=== PATIENT | female | born 1990 | race Caucasian/White ===

== ENCOUNTER 2016-10-24 22:30 | Emergency (ER) | payer BC, OTHER, SELFPAY ==
[2016-10-24] MEDS ORDERED: Sodium Chloride 0.9% 10 ML Syringe FLUSH PRN (22:41)
[2016-10-24] MEDS ORDERED: Ondansetron 4 MG/2 ML SDV IVPUSH ONE (22:41)
[2016-10-24] MEDS ORDERED: HYDROmorphone 1 MG/ML Syringe IVPUSH ONE (22:41)
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
[2016-10-24] MEDS ORDERED: Lidocaine 1% 50 ML MDV SUBCUT STA (22:51)
[2016-10-24] MEDS ORDERED: Diphtheria,Pertussis(Acell),Tetanus Vaccine 0.5 ML SDV IM ONE (22:56)
[2016-10-25 01:19] VITALS: BP 112/60
[2016-10-25] MEDS ORDERED: Ketorolac 60 MG/2 ML SDV IM ONE (01:31)
--- NOTE | 2016-10-27 18:00 | CT ---
Head CT Technique: Multiple axial sections through the brain were obtained. Intravenous contrast was not utilized. Comparison: No previous intracranial imaging. Findings: Ventricles along with basal cisterns and sulci over the convexities appear within normal limits for the patient's age. No abnormal parenchymal densities are seen. No evidence of intracranial hemorrhage. No midline shift or mass effect is seen. Mild soft tissue swelling is seen within the frontal scalp. No acute calvarial abnormality is seen. Impression: 1. Soft tissue swelling within the frontal scalp on the right side. 2. No acute intracranial abnormality is seen. Diagnostic code #2 I agree with preliminary report issued by [employer] ([facility] preliminary report dictated on 10/25/16, 12:59 AM Central Time)
--- NOTE | 2016-10-27 18:00 | CR ---
Right wrist: Four views of the right wrist were obtained. Comparison: No previous study. Slightly comminuted distal radial fracture is seen. Transverse fracture line is identified through the metaphysis as well as a vertical fracture line extending into the epiphysis with articular extension. Minimal avulsion fracture is noted off the ulnar styloid process. Very slight posterior impaction is seen of the distal radial fracture. No additional fracture or other bony abnormality is seen. Soft tissue swelling is noted. Impression: 1. Distal radial fracture as described above. Minimal fracture within the ulnar styloid process. 2. Soft tissue swelling. Diagnostic code #3
--- NOTE | 2016-10-27 18:00 | CT ---
CT cervical spine Technique: Multiple axial sections were obtained from above C1 inferiorly to the bottom of T2. Reconstructed sagittal and coronal images were reviewed. Comparison: No previous cervical spine imaging. Findings: Mastoid sinuses and middle ear cavities are clear. Posterior skull base is intact. Vertebral body heights and disc spaces are maintained. No central canal stenosis or neural foraminal stenosis is seen. No abnormal subluxation is seen on the reconstructed sagittal images. Impression: 1. No acute abnormality is identified on CT study of the cervical spine. Diagnostic code #1 Agree with preliminary report issued by [employer] ([facility] preliminary report dictated on 10/25/16, 12:55 AM Central Time)
== END 2016-10-25 02:00 | disposition home or self-care (01) ==
LOC: JD.ED 22:30
DX: S06.9X9A Unspecified intracranial injury with loss of consciousness of unspecified duration, initial encounter (principal); S52.571A Other intraarticular fracture of lower end of right radius, initial encounter for closed fracture; S01.81XA Laceration without foreign body of other part of head, initial encounter; F17.210 Nicotine dependence, cigarettes, uncomplicated; Z23 Encounter for immunization; V86.99XA Unspecified occupant of other special all-terrain or other off-road motor vehicle injured in nontraffic accident, initial encounter
CPT/HCPCS: 12013; 29105; 70450; 72125; 73110; 81025; 90471; 90715; 96372; 96374; 96375; 99285; J1170; J1885; J2405; J7050; 99284-25

== ENCOUNTER 2019-08-02 00:52 | Emergency (ER) | payer BC ==
[2019-08-02 01:10] VITALS: BP 130/85; PULSE 108
[2019-08-02] MEDS ORDERED: Lidocaine 1% 10 ML MDV INJECT ONE (03:36)
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
== END 2019-08-02 05:03 | disposition home or self-care (01) ==
LOC: JD.ED 00:52
DX: S01.511A Laceration without foreign body of lip, initial encounter (principal); F41.9 Anxiety disorder, unspecified; F32.9 Major depressive disorder, single episode, unspecified; Z79.899 Other long term (current) drug therapy; W01.198A Fall on same level from slipping, tripping and stumbling with subsequent striking against other object, initial encounter
CPT/HCPCS: 12011; 40650; 99282; 99282-25; J2001

== ENCOUNTER 2024-02-11 17:44 | Emergency (ER) | payer BC, OTHER ==
[2024-02-11 19:00] VITALS: BP 135/99; PULSE 67
[2024-02-11] MEDS: Sodium Chloride 0.9% 1,000 ML IV SCH (19:31)
[2024-02-11] MEDS: Metoclopramide 10 MG/2 ML SDV IVPUSH ONE (19:32)
[2024-02-11 19:33] LABS: BASOPHILS ABSOLUTE AUTO 0.1 K/mm3 (0.0-0.2); BASOPHILS PERCENT AUTO 0.8 % (0.0-1.0); EOSINOPHILS ABSOLUTE AUTO 0.1 K/mm3 (0.0-0.4); EOSINOPHILS PERCENT AUTO 1.9 % (0.0-6.0); HEMATOCRIT 38.2 % (37.0-47.0); HEMOGLOBIN 13.3 gm/dl (12.0-16.0); IMMATURE GRAN ABSOLUTE AUTO 0.04 K/mm3 (0.00-0.05); IMMATURE GRAN PERCENT AUTO 0.5 % (0.0-0.4); LYMPHOCYTES ABSOLUTE AUTO 1.5 K/mm3 (1.0-4.8); LYMPHOCYTES PERCENT AUTO 20.6 % (24.0-44.0); MEAN CORPUSCULAR HEMOGLOBIN 31.5 pg (28.0-32.0); MEAN CORPUSCULAR HGB CONC 34.8 g/dl (32.0-36.0); MEAN CORPUSCULAR VOLUME 90.5 fl (83.0-99.0); MEAN PLATELET VOLUME 9.7 fl (9.4-12.3); MONOCYTES ABSOLUTE AUTO 0.5 K/mm3 (0.0-0.8); MONOCYTES PERCENT AUTO 7.2 % (0.0-8.0); PLATELET COUNT,PLT 370 K/mm3 (150-400); RED BLOOD CELL COUNT 4.22 M/mm3 (4.10-5.30); WHITE BLOOD CELL COUNT,WBC 7.32 K/mm3 (3.9-11.3)
[2024-02-11] MEDS: diphenhydrAMINE 50 MG/ML SDV IVPUSH ONE (19:33)
[2024-02-11] MEDS: Ketorolac 30 MG/ML SDV IVPUSH ONE (19:34)
[2024-02-11] MEDS: Sodium Chloride 0.9% 10 ML Syringe FLUSH PRN (19:36)
[2024-02-11 19:55] LABS: A/G RATIO 0.9 (1-2); ALBUMIN 3.7 g/dl (3.4-5.0); ANION GAP 14.2 (5-15); BILIRUBIN TOTAL 0.5 mg/dL (0.2-1.0); BUN/CREATININE RATIO 12.2 (14-18); CALCIUM 8.8 mg/dL (8.5-10.1); CREATININE 0.9 mg/dL (0.55-1.02); EST CRCL DRUG DOSING (CG) 66.46 mL/min; POTASSIUM,K 4.2 mEq/L (3.5-5.1); PROTEIN TOTAL,TP 7.9 g/dl (6.4-8.2)
== END 2024-02-11 21:20 | disposition home or self-care (01) ==
LOC: JD.ED 17:44
DX: G43.909 Migraine, unspecified, not intractable, without status migrainosus (principal); F17.210 Nicotine dependence, cigarettes, uncomplicated; Z79.899 Other long term (current) drug therapy
CPT/HCPCS: 36415; 70450; 70450-26; 80053; 85025; 96361; 96374; 96375; 99283; 99284-25; J1200; J1885; J2765; J7030